=== PATIENT | male | born 1960 | race Caucasian/White ===

== ENCOUNTER 2019-09-25 08:38 | Observation (INO) | payer SELFPAY ==
[2019-09-25] VITALS (11 sets, daily range): BP systolic 137–199; BP diastolic 77–147
[~2019-09-25] VITALS: Ht 180.3 cm; Wt 107.1 kg
[~2019-09-25 08:38] MED LIST: ALBU2.5V8 NEB; AMLO10TA8 PO; ASPI-630 PO; ASPI325T8 PO; DOXY100C2 PO; FURO20TA3 PO; GUAI100L12 PO; LACT1CAP19 PO; LOSA-73 PO; LOSA25TA54 PO; MAG30ORA2 PO; METO100T7 PO; METO50TA6 PO; PRED-220 PO; PRED20TA PO; TERA5CAP3 PO
--- NOTE | 2019-09-25 08:55 | PHYS DOC ---
Past Medical History Past Medical History: COPD, Hypertension, RI, Stroke Past Surgical History: Other Additional Past Surgical Histo: BACK SURGERY, RT KNEE, CARDIAC STENTS, DENTAL Smoking Status: Current Every Day Smoker Alcohol Use: Occasionally Drug Use: None Adult General Chief Complaint Chief Complaint: SHORTNESS OF BREATH HPI HPI Patient is a 59 year old male who is brought to the ER by EMS secondary to complaint of increasing shortness of breath since last night with a history of COPD, atrial fibrillation, and cardiac stent x2. Patient reports waking this morning with some chest pain as well. He was given a DuoNeb breathing treatment in route and placed on oxygen which helped his chest pain and shortness of breath. Patient reports no recent fever or chills, cough or exposure to sick contacts. Patient reports he does not wear home oxygen brittany lly. His chest pain is currently mild Review of Systems Review of Systems All other systems were reviewed and found to be within normal limits, except as documented in this note. Current Medications Current Medications Current Medications Medications (Trade) Dose Ordered Sig/Adrienne Start Time Stop Time Status Last Admin Dose Admin Hydralazine HCl (Apresoline Inj) 10 mg 1X ONCE 09/25/19 09:30 09/25/19 09:31 DC Sodium Chloride 500 ml @ 500 mls/hr 1X ONCE 09/25/19 09:00 09/25/19 09:59 Allergies Allergies Allergies Coded Allergies Type Severity Reaction Last Updated Verified Beta-Blockers (Beta-Adrenergic Bloc Allergy Severe anaphylaxis 07/10/17 Yes lisinopril Allergy Severe anaphylaxis shock 07/10/17 Yes cyclobenzaprine Allergy Intermediate stomach problems 07/10/17 Yes Physical Exam Physical Exam Constitutional: Well developed, well nourished, very mild respiratory distress, appears sick HENT: Normocephalic, atraumatic, bilateral external ears normal, oropharynx moist, no oral exudates, nose normal. [] Eyes: PERRLA, EOMI, conjunctiva normal, no discharge. [] Neck: Normal range of motion, no tenderness, supple, no stridor. [] Cardiovascular: Tachycardic, no murmur [] Lungs & Thorax: Bilateral breath sounds clear to auscultation [] Abdomen: Bowel sounds normal, soft, no tenderness, no masses, no pulsatile chio s. [] Skin: Warm, dry, no erythema, no rash. [] Back: No tenderness, no CVA tenderness. [] Extremities: No tenderness, no cyanosis, no clubbing, ROM intact, no edema. [] Neurologic: Alert and oriented X 3, normal motor function, normal sensory function, no focal deficits noted. [] Psychologic: Affect normal, judgement normal, mood normal. [] Current Patient Data Vital Signs Vital Signs Date Time Temp Pulse Resp B/P (MAP) Pulse Ox O2 Delivery O2 Flow Rate FiO2 09/25/19 09:16 89 Ventilator 09/25/19 08:38 97.3 56 28 267/137 (180) 97.3 Lab Values Laboratory Tests Test 09/25/19 08:43 09/25/19 08:50 09/25/19 09:05 White Blood Count 8.8 x10^3/uL (4.0-11.0) Red Blood Count 4.94 x10^6/uL (4.30-5.70) Hemoglobin 15.1 g/dL (13.0-17.5) Hematocrit 44.8 % (39.0-53.0) Mean Corpuscular Volume 91 fL (79-100) Mean Corpuscular Hemoglobin 31 pg (25-35) Mean Corpuscular Hemoglobin Concent 34 g/dL (31-37) Red Cell Distribution Width 14.2 % (11.5-14.5) Platelet Count 191 x10^3/uL (140-400) Neutrophils (%) (Auto) 73 % (31-73) Lymphocytes (%) (Auto) 16 % (24-48) L Monocytes (%) (Auto) 6 % (0-9) Eosinophils (%) (Auto) 4 % (0-3) H Basophils (%) (Auto) 1 % (0-3) Neutrophils # (Auto) 6.4 x10^3/uL (1.8-7.7) Lymphocytes # (Auto) 1.4 x10^3/uL (1.0-4.8) Monocytes # (Auto) 0.5 x10^3/uL (0.0-1.1) Eosinophils # (Auto) 0.4 x10^3/uL (0.0-0.7) Basophils # (Auto) 0.1 x10^3/uL (0.0-0.2) Prothrombin Time 11.9 SEC (11.7-14.0) Prothrombin Time INR 0.9 (0.8-1.1) Activated Partial Thromboplast Time 29 SEC (24-38) Sodium Level 142 mmol/L (136-145) Potassium Level 3.7 mmol/L (3.5-5.1) Chloride Level 104 mmol/L (98-107) Carbon Dioxide Level 32 mmol/L (21-32) Anion Gap 6 (6-14) Blood Urea Nitrogen 12 mg/dL (8-26) Creatinine 0.8 mg/dL (0.7-1.3) Estimated GFR (Cockcroft-Gault) 99.6 Glucose Level 170 mg/dL (70-99) H Lactic Acid Level 1.3 mmol/L (0.4-2.0) Calcium Level 8.9 mg/dL (8.5-10.1) Creatine Kinase 64 U/L (39-308) Creatine Kinase MB (Mass) 1.4 ng/mL (0.0-3.6) Creatine Kinase MB Relative Index % (0-4) Troponin I Quantitative < 0.017 ng/mL (0.000-0.055) EK-Ugv-[id number]-Type Natriuretic Peptide 1813 pg/mL (0-124) H O2 Saturation 96 % (92-99) Arterial Blood pH 7.31 (7.35-7.45) L Arterial Blood pCO2 at Patient Temp 61 mmHg (35-46) *H Arterial Blood pO2 at Patient Temp 85 mmHg (75-108) Arterial Blood HCO3 30 mmol/L (21-28) H Arterial Blood Base Excess 2 mmol/L (-3-3) FiO2 60 Influenza Type A Antigen Negative (NEGATIVE) Influenza Type B Antigen Negative (NEGATIVE) Laboratory Tests 09/25/19 08:43 Laboratory Tests 09/25/19 08:43 EKG EKG Sinus rhythm with a ventricular rate of 87, no STEMI. [] Radiology/Procedures Radiology/Procedures AP chest x-ray HISTORY: Chest pain. COMPARISON: CT chest September 05, 2019. FINDINGS: Borderline cardiomegaly stable. Nasal silhouette normal. Mild medial basilar right lower lobe opacity similar to prior x-rays from September 05, [address] chest imaging. Left lung is clear. No pneumothorax. No pleural effusions. Bones are unremarkable. IMPRESSION: Medial basilar right lower lobe atelectasis versus early pulmonary edema or pneumonia. This is similar to x-rays and CT chest imaging from September 05, 2019. Follow-up will be of benefit to document that this resolves.[] Course & Med Decision Making Course & Med Decision Making Pertinent Labs and Imaging studies reviewed. (See chart for details) 0855: Patient is seen for shortness of breath. He was on CPAP upon arrival and transition to BiPAP in the ED. His oxygen saturation on BiPAP is 95% and he is breathing much easier at this time. His blood pressure was elevated so I have ordered 10 mg of hydralazine and a 500 cc normal saline bolus. Will give a sep tic work-up and the patient will need to be admitted. 0918: Chest x-ray shows some abnormalities consistent with either pulmonary edema, atelectasis, pneumonia. Patient was recently seen on September 04 and discharged on September 05 with similar symptoms. It is unclear to this provider whether or not the patient was discharged home on antibiotics. 0953: Patient's work-up is complete at this time and is mostly unremarkable. His chest x-ray has a few abnormalities as described above and his BNP is sli ghtly elevated but not nearly to the extent upon last admission. He is currently on BiPAP and he has remained stable and his heart rate is 79 and his oxygenation is 97%. Will admit to med telemetry for hypoxic respiratory failure with a history of CHF and current chest pain. Dragon Disclaimer Dragon Disclaimer This electronic medical record was generated, in whole or in part, using a voice recognition dictation system. Departure Departure Impression: Primary Impression: Acute respiratory failure with hypoxia Additional Impressions: Chest pain Congestive heart failure Disposition: ADMITTED INPATIENT Admitting Physician: BULMARO Condition: STABLE Referrals: GEOFF MARTI (PCP) Problem Qualifiers PATRICK GUTHRIE DO Sep 25, 2019 08:55
[2019-09-25 08:59] LABS: BASE EXCESS ABG 2 mmol/L (-3-3); HCO3 ABG 30 mmol/L (21-28); PO2 ABG 85 mmHg (75-108); SAT O2 ABG 96 % (92-99)
[2019-09-25] MEDS ORDERED: hydrALAZINE 20 MG/ML VIAL. IVP ONE ×2 (09:00→09:30)
[2019-09-25] MEDS ORDERED: IV NORMAL SALINE 500ML BAG 500 ML IV ONE (09:00)
[2019-09-25 09:06] LABS: BASO # 0.1 x10^3/uL (0.0-0.2); BASO % 1 % (0-3); EOS # 0.4 x10^3/uL (0.0-0.7); EOS % 4 % (0-3); HEMATOCRIT 44.8 % (39.0-53.0); HEMOGLOBIN 15.1 g/dL (13.0-17.5); LYMPH # 1.4 x10^3/uL (1.0-4.8); LYMPH % 16 % (24-48); MEAN CORPUSCULAR HEMOGLOBIN 31 pg (25-35); MEAN CORPUSCULAR HGB CONC 34 g/dL (31-37); MEAN CORPUSCULAR VOLUME 91 fL (79-100); MONO # 0.5 x10^3/uL (0.0-1.1); MONO % 6 % (0-9); NEUT # 6.4 x10^3/uL (1.8-7.7); NEUT % 73 % (31-73); PLATELET COUNT 191 x10^3/uL (140-400); RED BLOOD COUNT 4.94 x10^6/uL (4.30-5.70); RED CELL DISTRIBUTION WIDTH 14.2 % (11.5-14.5); WHITE BLOOD COUNT 8.8 x10^3/uL (4.0-11.0)
--- NOTE | 2019-09-25 09:06 | RAD ---
AP chest x-ray HISTORY: Chest pain. COMPARISON: CT chest September 05, 2019. FINDINGS: Borderline cardiomegaly stable. Nasal silhouette normal. Mild medial basilar right lower lobe opacity similar to prior x-rays from September 05, [address] chest imaging. Left lung is clear. No pneumothorax. No pleural effusions. Bones are unremarkable. IMPRESSION: Medial basilar right lower lobe atelectasis versus early pulmonary edema or pneumonia. This is similar to x-rays and CT chest imaging from September 05, 2019. Follow-up will be of benefit to document that this resolves. Electronically signed by: Claus Phillips MD (09/25/2019 9:03 AM) [id number]
[2019-09-25 09:10] LABS: FIO2 ABG 60; PCO2 ABG 61 mmHg (35-46)
[2019-09-25 09:16] LABS: CALCIUM 8.9 mg/dL (8.5-10.1); CREATININE 0.8 mg/dL (0.7-1.3); GFR 99.6; POTASSIUM 3.7 mmol/L (3.5-5.1)
[2019-09-25 09:20] LABS: PROTHROMBIN TIME PATIENT 11.9 SEC (11.7-14.0)
[2019-09-25 09:34] LABS: CREATINE KINASE 64 U/L (39-308)
[2019-09-25 09:36] LABS: INFLUENZA A PATIENT NEGATIVE (NEGATIVE); INFLUENZA B PATIENT NEGATIVE (NEGATIVE)
--- NOTE | 2019-09-25 10:07 | PDOC1 ---
History and Physical Date of Admission Date of Admission DATE: 09/25/19 TIME: 10:06 Identification/Chief Complaint Chief Complaint SEEN IN ER WITH ACUTE RESP FAILURE, PLACE ON BIPAP came ER by EMS secondary to complaint of increasing shortness of breath since 09/23 with a history of COPD, atrial fibrillation, and cardiac stent x2. Patient reports waking this morning with some chest pain as well. He was given a DuoNeb breathing treatment in route and placed on oxygen which helped his chest pain and shortness of breath. reports no recent fever or chills, cough or exposure to sick contacts. HE IS STILL SMOKING 4-5 CIGARETTES a day Past Medical History Past Medical History Past Medical History Past Medical History Past Medical History: COPD, Hypertension, AL, Stroke Past Surgical History: Other Additional Past Surgical Histo: BACK SURGERY, RT KNEE, CARDIAC STENTS, DENTAL Smoking Status: Current Every Day Smoker Alcohol Use: Occasionally Drug Use: None fhx htn Cardiovascular: CAD, HTN, AL, Hyperlipidemia Pulmonary: COPD CENTRAL NERVOUS SYSTEM: CVA GI: No pertinent hx Heme/Onc: No pertinent hx Psych: No pertinent hx Musculoskeletal: Osteoarthritis Rheumatologic: No pertinent hx Infectious disease: No pertinent hx Renal/: No pertinent hx Endocrine: No pertinent hx Past Surgical History Past Surgical History: Other Family History Family History fhx htn Cardiovascular: CAD, HTN, AL, Hyperlipidemia Pulmonary: COPD CENTRAL NERVOUS SYSTEM: CVA GI: No pertinent hx Heme/Onc: No pertinent hx Psych: No pertinent hx Musculoskeletal: Osteoarthritis Rheumatologic: No pertinent hx Infectious disease: No pertinent hx Renal/: No pertinent hx Endocrine: No pertinent hx Past Surgical History Past Surgical History: Other Family History Family History Past Medical History Cardiovascular: CAD, HTN, AL, Hyperlipidemia Pulmonary: COPD (chronic bronchitis) CENTRAL NERVOUS SYSTEM: CVA (with right side hemiparesis) GI: No pertinent hx Heme/Onc: No pertinent hx Psych: No pertinent hx Musculoskeletal: Osteoarthritis Rheumatologic: No pertinent hx Infectious disease: No pertinent hx ENT: No pertinent hx Renal/: No pertinent hx Endocrine: No pertinent hx Dermatology: No pertinent hx Past Surgical History Past Surgical History: Other (PCI/stent 2014; right hand surgery; right knee repair; vasectomy; lower back surgery) Family History Family History: Coronary Artery Disease (mother in her 50s), Diabetes (mother) Social History Smoke: No ALCOHOL: none Drugs: None Family History: Coronary Artery Disease, Diabetes Social History Smoke: 1 pack per day ALCOHOL: none Drugs: None Current Problem List Problem List Problems Medical Problems: (1) Acute respiratory failure with hypercapnia Status: Acute (2) CHF (congestive heart failure) Status: Acute Family History: Coronary Artery Disease, Diabetes, Hypertension Social History Smoke: <1 pack per day ALCOHOL: none Drugs: None Current Problem List Problem List Problems Medical Problems: (1) Acute respiratory failure with hypoxia Status: Acute (2) Chest pain Status: Acute (3) Congestive heart failure Status: Acute Current Medications Current Medications Current Medications Hydralazine HCl (Apresoline Inj) 10 mg 1X ONCE IVP ; Start 09/25/19 at 09:00; Stop 09/25/19 at 09:05; Status DC Sodium Chloride 500 ml @ 500 mls/hr 1X ONCE IV Last administered on 09/25/19at 09:59; Start 09/25/19 at 09:00; Stop 09/25/19 at 09:59; Status DC Hydralazine HCl (Apresoline Inj) 10 mg 1X ONCE IVP Last administered on 09/25/19at 10:00; Start 09/25/19 at 09:30; Stop 09/25/19 at 09:31; Status DC Active Scripts Active Furosemide 20 Mg Tablet 1 Tab PO DAILY 14 Days Doxycycline Hyclate 100 Mg Capsule 1 Cap PO BID 10 Days Prednisone 20 Mg Tablet 30 Mg PO DAILY 7 Days Culturelle (Lactobacillus Rhamnosus Gg) 1 Each Cap.sprink 1 Cap PO BID 30 Days Mag-Al Plus Xs Suspension (Mag Hydrox/Al Hydrox/Simeth) 30 Ml Oral.susp 30 Ml PO PRN DAILY PRN 10 Days Guaifenesin 100 Mg/5 Ml Liquid 200 Mg PO PRN Q4HRS PRN 10 Days Cozaar (Losartan Potassium) 50 Mg Tablet 100 Mg PO DAILY 30 Days Proair Hfa (Albuterol Sulfate) 8.5 Gm Hfa.aer.ad 2.5 Mg NEB PRN Q4HRS PRN 14 Days Reported Terazosin Hcl 5 Mg Capsule 1 Cap PO QHS Metoprolol Tartrate 100 Mg Tablet 2 Tab PO BID Aspirin 325 Mg Tablet 1 Tab PO DAILY Amlodipine Besylate 10 Mg Tablet 10 Mg PO DAILY Allergies Allergies: Coded Allergies: Beta-Blockers (Beta-Adrenergic Bloc (Verified Allergy, Severe, anaphylaxis, 07/10/17) takes lopressor at home lisinopril (Verified Allergy, Severe, anaphylaxis shock, 07/10/17) cyclobenzaprine (Verified Allergy, Intermediate, stomach problems, 07/10/17) ROS Review of System Review of Systems Review of Systems 14 pt systems were reviewed and found to be within normal limits, except as documented General: YES: Fatigue PSYCHOLOGICAL ROS: No: Anxiety, Behavioral Disorder, Concentration difficultie, Decreased libido, Depression, Disorientation, Hallucinations, Hostility, Irritablity, Memory difficulties, Mood Swings, Obsessive thoughts, Physical abuse, Sexual abuse, Sleep disturbances, Suicidal ideation, Other Hematological and Lymphatic: No: Bleeding Problems, Blood Clots, Blood Transfusions, Brusing, Night Sweats, Pallor, Swollen Lymph Nodes, Other Cardiovascular: yes Chest Pain Gastrointestinal: No Nausea, No Vomiting, No Abdominal Pain, No Diarrhea, No Constipation, No Melena, No Hematochezia, No Other Genitourinary: No Dysuria, No Frequency, No Incontinence, No Hematuria, No Retention, No Discharge, No Urgency, No Pain, No Flank Pain, No Other, No , No , No , No , No , No , No Musculoskeletal: Yes Joint Stiffness; No Gait Disturbance, No Joint Pain, No Joint Swelling, No Muscle Pain, No Muscular Weakness, No Pain In:, No Swelling In:, No Other Neurological: No Behavorial Changes, No Bowel/Bladder ControlChng, No Confusion, No Dizziness, No Gait Disturbance, No Headaches, No Impaired Coord/balance, No Memory Loss, No Numbness/Tingling, No Seizures, No Speech Problems, No Tremors, No Visual Changes, No Weakness, No Other Physical Exam Physical Exam Physical Exam Physical Exam Constitutional: Well developed, well nourished, mild respiratory distress, appears acutely ill HENT: Normocephalic, atraumatic, bilateral external ears normal, oropharynx moist, no oral exudates, nose normal. [] Eyes: PERRLA, EOMI, conjunctiva normal, no discharge. [] Neck: Normal range of motion, no tenderness, supple, no stridor. [] Cardiovascular: Tachycardic, no murmur [] Lungs & Thorax: Bilateral breath sounds clear to auscultation, diminished [] Abdomen: Bowel sounds normal, soft, no tenderness, no masses, no pulsatile masses. [] Skin: Warm, dry, no erythema, no rash. [] Back: No tenderness, no CVA tenderness. [] Extremities: No tenderness, no cyanosis, no clubbing, ROM intact, no edema. [] Neurologic: Alert and oriented X 3, normal motor function, normal sensory function, no focal deficits noted. [] Psychologic: Affect normal, judgment normal, mood normal. [] General: Alert, Oriented X3, Cooperative, mild distress HEENT: PERRLA, EOMI Heart: no gallops Abdomen: Normal bowel sounds, Soft, Other (obese) Rectal Exam: not examined PELVIC: Examination not indicated Extremities: No cyanosis Neuro: Normal speech, Cranial nerves 3-12 NL Psych/Mental Status: Mental status NL, Mood NL Vitals Vitals Vital Signs Date Time Temp Pulse Resp B/P (MAP) Pulse Ox O2 Delivery O2 Flow Rate FiO2 09/25/19 10:00 78 188/102 09/25/19 09:16 89 Ventilator 09/25/19 08:38 97.3 28 97.3 Labs Labs Laboratory Tests Test 09/25/19 08:43 09/25/19 08:50 09/25/19 09:05 White Blood Count 8.8 x10^3/uL (4.0-11.0) Red Blood Count 4.94 x10^6/uL (4.30-5.70) Hemoglobin 15.1 g/dL (13.0-17.5) Hematocrit 44.8 % (39.0-53.0) Mean Corpuscular Volume 91 fL (79-100) Mean Corpuscular Hemoglobin 31 pg (25-35) Mean Corpuscular Hemoglobin Concent 34 g/dL (31-37) Red Cell Distribution Width 14.2 % (11.5-14.5) Platelet Count 191 x10^3/uL (140-400) Neutrophils (%) (Auto) 73 % (31-73) Lymphocytes (%) (Auto) 16 % (24-48) Monocytes (%) (Auto) 6 % (0-9) Eosinophils (%) (Auto) 4 % (0-3) Basophils (%) (Auto) 1 % (0-3) Neutrophils # (Auto) 6.4 x10^3/uL (1.8-7.7) Lymphocytes # (Auto) 1.4 x10^3/uL (1.0-4.8) Monocytes # (Auto) 0.5 x10^3/uL (0.0-1.1) Eosinophils # (Auto) 0.4 x10^3/uL (0.0-0.7) Basophils # (Auto) 0.1 x10^3/uL (0.0-0.2) Prothrombin Time 11.9 SEC (11.7-14.0) Prothromb Time International Ratio 0.9 (0.8-1.1) Activated Partial Thromboplast Time 29 SEC (24-38) Sodium Level 142 mmol/L (136-145) Potassium Level 3.7 mmol/L (3.5-5.1) Chloride Level 104 mmol/L (98-107) Carbon Dioxide Level 32 mmol/L (21-32) Anion Gap 6 (6-14) Blood Urea Nitrogen 12 mg/dL (8-26) Creatinine 0.8 mg/dL (0.7-1.3) Estimated GFR (Cockcroft-Gault) 99.6 Glucose Level 170 mg/dL (70-99) Lactic Acid Level 1.3 mmol/L (0.4-2.0) Calcium Level 8.9 mg/dL (8.5-10.1) Creatine Kinase 64 U/L (39-308) Creatine Kinase MB (Mass) 1.4 ng/mL (0.0-3.6) Creatine Kinase MB Relative Index % (0-4) Troponin I Quantitative < 0.017 ng/mL (0.000-0.055) QS-Hyn-G-Type Natriuretic Peptide 1813 pg/mL (0-124) O2 Saturation 96 % (92-99) Arterial Blood pH 7.31 (7.35-7.45) Arterial Blood pCO2 at Patient Temp 61 mmHg (35-46) Arterial Blood pO2 at Patient Temp 85 mmHg (75-108) Arterial Blood HCO3 30 mmol/L (21-28) Arterial Blood Base Excess 2 mmol/L (-3-3) FiO2 60 Influenza Type A Antigen Negative (NEGATIVE) Influenza Type B Antigen Negative (NEGATIVE) Laboratory Tests Test 09/25/19 08:43 09/25/19 08:50 09/25/19 09:05 White Blood Count 8.8 x10^3/uL (4.0-11.0) Red Blood Count 4.94 x10^6/uL (4.30-5.70) Hemoglobin 15.1 g/dL (13.0-17.5) Hematocrit 44.8 % (39.0-53.0) Mean Corpuscular Volume 91 fL (79-100) Mean Corpuscular Hemoglobin 31 pg (25-35) Mean Corpuscular Hemoglobin Concent 34 g/dL (31-37) Red Cell Distribution Width 14.2 % (11.5-14.5) Platelet Count 191 x10^3/uL (140-400) Neutrophils (%) (Auto) 73 % (31-73) Lymphocytes (%) (Auto) 16 % (24-48) Monocytes (%) (Auto) 6 % (0-9) Eosinophils (%) (Auto) 4 % (0-3) Basophils (%) (Auto) 1 % (0-3) Neutrophils # (Auto) 6.4 x10^3/uL (1.8-7.7) Lymphocytes # (Auto) 1.4 x10^3/uL (1.0-4.8) Monocytes # (Auto) 0.5 x10^3/uL (0.0-1.1) Eosinophils # (Auto) 0.4 x10^3/uL (0.0-0.7) Basophils # (Auto) 0.1 x10^3/uL (0.0-0.2) Prothrombin Time 11.9 SEC (11.7-14.0) Prothromb Time International Ratio 0.9 (0.8-1.1) Activated Partial Thromboplast Time 29 SEC (24-38) Sodium Level 142 mmol/L (136-145) Potassium Level 3.7 mmol/L (3.5-5.1) Chloride Level 104 mmol/L (98-107) Carbon Dioxide Level 32 mmol/L (21-32) Anion Gap 6 (6-14) Blood Urea Nitrogen 12 mg/dL (8-26) Creatinine 0.8 mg/dL (0.7-1.3) Estimated GFR (Cockcroft-Gault) 99.6 Glucose Level 170 mg/dL (70-99) Lactic Acid Level 1.3 mmol/L (0.4-2.0) Calcium Level 8.9 mg/dL (8.5-10.1) Creatine Kinase 64 U/L (39-308) Creatine Kinase MB (Mass) 1.4 ng/mL (0.0-3.6) Creatine Kinase MB Relative Index % (0-4) Troponin I Quantitative < 0.017 ng/mL (0.000-0.055) AG-Rmg-Q-Type Natriuretic Peptide 1813 pg/mL (0-124) O2 Saturation 96 % (92-99) Arterial Blood pH 7.31 (7.35-7.45) Arterial Blood pCO2 at Patient Temp 61 mmHg (35-46) Arterial Blood pO2 at Patient Temp 85 mmHg (75-108) Arterial Blood HCO3 30 mmol/L (21-28) Arterial Blood Base Excess 2 mmol/L (-3-3) FiO2 60 Influenza Type A Antigen Negative (NEGATIVE) Influenza Type B Antigen Negative (NEGATIVE) Images Images Images Images LEFT VENTRICLE The left ventricle is normal size. There is mild to moderate concentric left ventricular hypertrophy. The left ventricular systolic function is normal and the ejection fraction is within normal range. EF 55% There is grossly normal LV segmental wall motion. Tissue Doppler imaging reveals mild left ventricular diastolic dysfunction. RIGHT VENTRICLE The right ventricle is normal size. The right ventricular systolic function is normal. ATRIA The left atrium is borderline dilated. The right atrium size is normal. The interatrial septum is intact with no evidence for an atrial septal defect or patent foramen ovale as noted on 2-D or Doppler imaging. AORTIC VALVE Not well visualized. Doppler and Color Flow revealed no significant aortic regurgitation. There is no significant aortic valvular stenosis. There is no ao rtic valvular vegetation. MITRAL VALVE The mitral valve is thickened but opens well. There is no evidence of mitral valve prolapse. There is no mitral valve stenosis. Doppler and Color-flow revealed mild mitral regurgitation. TRICUSPID VALVE Doppler and Color Flow revealed no tricuspid valve regurgitation noted. There is no tricuspid valve prolapse or vegetation. There is no tricuspid valve stenosis. PULMONIC VALVE Doppler and Color Flow revealed no pulmonic valvular regurgitation. There is no pulmonic valvular stenosis. GREAT VESSELS The aortic root is normal in size. The IVC is enlarged in size and collapses <50% with inspiration. PERICARDIAL EFFUSION There is no pleural effusion. There is no evidence of significant pericardial effusion. Critical Notification Critical Value: No <Conclusion> The left ventricular systolic function is normal and the ejection fraction is within normal range. EF 55% There is grossly normal LV segmental wall motion. Technically difficult study. Signed by : Didier Carter, Electronically Approved : 07/11/2017 13:01:58 DICTATED and SIGNED BY: DIDIER CARTER MD DATE: 07/11/17 1301 History: Dyspnea. Respiratory distress Technique: CT of the chest was performed with contrast. PE protocol. Maximum intensity projection coronal and sagittal reconstructions were performed. Exposure: One or more of the following individualized dose reduction techniques were utilized for this examination: 1. Automated exposure control 2. Adjustment of the mA and/or kV according to patient size 3. Use of iterative reconstruction technique. Comparison: None Findings: Chest: No pulmonary embolism. Multiple borderline enlarged mediastinal lymph nodes largest right paratracheal lymph node measures 1.5 x 1.0 cm. Enlarged right hilar lymph nodes. Calcified subcarinal and right hilar lymph nodes, likely prior granulous disease. Mild paraseptal emphysema. Mild basilar septal thickening with groundglass opacities. Bronchial wall thickening. Right middle lobe 4 mm pulmonary nodule (series 3 image 87). 4 mm left upper lobe pulmonary nodule (image 48). 3 mm left anterior upper lobe pulmonary nodule (image #86). Upper abdomen: Right hepatic cyst measures 1.5 cm. Splenic granulomas. Slight Bones: No pathologic osseous lesions. Impression: 1. No pulmonary embolism. 2. Mild bilateral lower lobe septal thickening and groundglass opacities, may represent early pulmonary edema. 3. Bronchial wall thickening. 4. Hilar mediastinal lymphadenopathy, likely reactive. Recommend follow-up. 5. Small pulmonary nodules. Recommend one-year follow-up if high risk. 6. Mild paraseptal emphysema. Electronically signed by: Baljinder Harkins DO (09/05/2019 3:20 AM) [id number] DICTATED and SIGNED BY: BALJINDER HARKINS DO PATIENT: ACACIA MOORE ACCOUNT: [id number] : 1960 LOCATION: ER AGE: 59 SEX: M EXAM STATUS: REG ER ORD. PHYSICIAN: ALEK ECHOLS Jr., DO REASON: possible PE, DYSPENIA, RESPIRATORY DISTRESS, OMNI 350 100ML IV PROCEDURE: CT ANGIOGRAPHY CHEST CT ANGIOGRAPHY CHEST History: Dyspnea. Respiratory distress Technique: CT of the chest was performed with contrast. PE protocol. Maximum intensity projection coronal and sagittal reconstructions were performed. Exposure: One or more of the following individualized dose reduction techniques were utilized for this examination: 1. Automated exposure control 2. Adjustment of the mA and/or kV according to patient size 3. Use of iterative reconstruction technique. Comparison: None Findings: Chest: No pulmonary embolism. Multiple borderline enlarged mediastinal lymph nodes largest right paratracheal lymph node measures 1.5 x 1.0 cm. Enlarged right hilar lymph nodes. Calcified subcarinal and right hilar lymph nodes, likely prior granulous disease. Mild paraseptal emphysema. Mild basilar septal thickening with groundglass opacities. Bronchial wall thickening. Right middle lobe 4 mm pulmonary nodule (series 3 image 87). 4 mm left upper lobe pulmonary nodule (image 48). 3 mm left anterior upper lobe pulmonary nodule (image #86). Upper abdomen: Right hepatic cyst measures 1.5 cm. Splenic granulomas. Slight Bones: No pathologic osseous lesions. Impression: 1. No pulmonary embolism. 2. Mild bilateral lower lobe septal thickening and groundglass opacities, may represent early pulmonary edema. 3. Bronchial wall thickening. 4. Hilar mediastinal lymphadenopathy, likely reactive. Recommend follow-up. 5. Small pulmonary nodules. Recommend one-year follow-up if high risk. 6. Mild paraseptal emphysema. Electronically signed by: Baljinder Harkins DO (09/05/2019 3:20 AM) [id number] DICTATED and SIGNED BY: BALJINDER HARKINS DO DATE: 09/05/19 0320 AP chest x-ray HISTORY: Chest pain. COMPARISON: CT chest September 05, 2019. FINDINGS: Borderline cardiomegaly stable. Nasal silhouette normal. Mild medial basilar right lower lobe opacity similar to prior x-rays from September 05, [address] chest imaging. Left lung is clear. No pneumothorax. No pleural effusions. Bones are unremarkable. IMPRESSION: Medial basilar right lower lobe atelectasis versus early pulmonary edema or pneumonia. This is similar to x-rays and CT chest imaging from September 05, 2019. Follow-up will be of benefit to document that this resolves. Electronically signed by: Rafael Bowens MD (09/25/2019 9:03 AM) [id number] DICTATED and SIGNED BY: RAFAEL BOWENS MD DATE: 09/25/19 0903 VTE Prophylaxis Ordered VTE Prophylaxis Devices: No VTE Pharmacological Prophylaxi: Yes Assessment/Plan Assessment/Plan DISCHARGE DX Assessment/Plan Impression: 1. No pulmonary embolism. cta chest 2. Mild bilateral lower lobe septal thickening and ground-glass opacities,may represent early pulmonary edema. 3. Bronchial wall thickening. 4. Hilar mediastinal lymphadenopathy, likely reactive. 5. Small pulmonary nodules. Recommend one-year follow-up // high risk. 6. paraseptal emphysema. 7. acute exac of COPD 8. ACUTE HYPOXIC/ hypercapnic RESP FAILURE 9. morbid obesity 10. Acute respiratory failure with hypercapnia 11. tobacco abuse disorder 12. acute exac CHF (congestive heart failure) 13. chest discomfort, pain with cough 14. HX severe hypertensive emergency, remains uncontrolled 15. elevated d- dimer PLAN ADMIT ICU bed isolation PULM CONSULT dvt prophylaxis iv doxycycline 100mg bid serial troponin i increase LOSARTEN TO 200MG po daily smoking cessation education provided bipap support prn diuresis COVI-19 AG SCREENING serial troponin i 75 min pt exam, chart review, > 50% of time spent with exam, chart review, pt care coordination RUSSEL ALVARADO MD Sep 25, 2019 10:07
[2019-09-25] MEDS ORDERED: cloNIDine HCL 0.1 MG TABLET PO PRN (10:45)
[2019-09-25] MEDS ORDERED: guaiFENesin ORAL 200 MG/10 ML LIQUID. PO PRN (10:45)
[2019-09-25] MEDS ORDERED: DOCUSATE SODIUM 100 MG CAPSULE. PO PRN (10:45)
[2019-09-25] MEDS ORDERED: 0.9 % SODIUM CHLORIDE 10 ML DISP.SYRIN. IV PRN (10:45)
[2019-09-25] MEDS ORDERED: ACETAMINOPHEN 325 MG TABLET. PO PRN (10:45)
[2019-09-25] MEDS ORDERED: ONDANSETRON PF 4 MG/2 ML VIAL. IV PRN (10:45)
[2019-09-25] MEDS ORDERED: MAG HYDROX/ALUMINUM HYD/SIMETH 30 ML ORAL.SUSP PO PRN (10:45)
[2019-09-25] MEDS: ENOXAPARIN 40 MG/0.4 ML SYRINGE. SQ SCH (11:00)
--- NOTE | 2019-09-25 11:05 | RAD ---
EXAM: CT Chest without IV contrast INDICATION: Shortness of air TECHNIQUE: Multi-detector row CT images were acquired from the thoracic inlet through the upper abdomen without the use of IV contrast. Sagittal and coronal images were acquired from the transaxial data. All CT scans performed at this facility utilize dose optimization techniques as appropriate to the exam, including the following: Automated exposure control and adjustment of the mA and/or KV according to patient size (this includes techniques or standardized protocols for targeted exams where dose is indication/reason for exam). COMPARISON: 09/25/2019 chest x-ray FINDINGS: There is some respiratory motion artifact. The absence of IV contrast limits evaluation of soft tissue pathology. CARDIOVASCULAR: Multivessel coronary calcifications. Normal heart size. Mild ascending thoracic aortic ectasia up to 4.5 cm transverse diameter with no abnormal density suspicious for intramural hematoma. MEDIASTINUM & NITESH: No mediastinal adenopathy with multiple prominent lymph nodes present, including right lower paratracheal lymph nodes that measure 1.3 cm in short axis diameter. No definite hilar adenopathy. There are calcified right hilar lymph nodes however noted. LUNGS: Mild paraseptal pattern emphysema and bibasilar ground glass opacities favored to reflect changes. No focal consolidation. Left upper lobe 5 mm pulmonary nodule (image 17 of axial series 2). PLEURAL SPACE: No pleural effusions or pneumothorax. OSSEOUS & SOFT TISSUE: Unremarkable ABDOMEN: Included upper abdomen shows an oval 1.7 cm hypodense lesion in hepatic segment 4 that is incompletely characterized without IV contrast. Statistically, this likely represents a cyst. IMPRESSION: 1. Evidence of prior granulomatous disease and early emphysematous change with no focal parenchymal lung consolidation suspicious for pneumonia. There are groundglass opacities in the bilateral posterior costophrenic angles with trace effusions that are favored to reflect atelectasis. Correlate clinically for any associated infectious inflammatory conditions. 2. Left upper lobe 5 mm pulmonary nodule. Per Fleischner 2017 criteria for incidental pulmonary nodules, no routine follow-up is required in patients considered at low risk for lung cancer. In high-risk patients, optional CT at 12 months may be considered. Electronically signed by: Bret Browne MD (09/25/2019 11:02 AM) [id number]
[2019-09-25] MEDS ORDERED: ALBUTEROL SULFATE 2.5 MG/3 ML NEBU. NEB PRN (11:15)
[2019-09-25] MEDS ORDERED: PIPERACILLIN/TAZOBACTAM 3.375 GM in IV NORMAL SALINE 50ML 50 ML IV ONE (11:30)
[2019-09-25] MEDS: IPRATRPIUM/ALBUTEROL 0.5/2.5MG 3 ML NEBU. NEB SCH ×4 (11:44→22:45)
[2019-09-25] MEDS ORDERED: LOSARTAN POTASSIUM 50 MG TABLET. PO SCH (12:00)
[2019-09-25] MEDS: FUROSEMIDE 40 MG TABLET. PO SCH (12:33)
[2019-09-25] MEDS ORDERED: LOSA100T14 PO (12:44)
--- NOTE | 2019-09-25 13:30 | NUR ---
Patient arrived to room 104 via gurney from ER. Patient on 2L NC, vitals stable, patient alert and oriented, call light within reach, will continue to monitor.
--- NOTE | 2019-09-25 13:36 | CONS ---
DATE OF CONSULTATION: 09/25/2019 CONSULTING PHYSICIAN: Dr. Cooper. REASON FOR CONSULTATION: Shortness of breath. HISTORY OF PRESENT ILLNESS: The patient is a 59-year-old man who presents to the hospital in the setting of dyspnea. He was actually admitted to the hospital in September of this year, approximately 3 weeks ago for similar symptoms. When he arrived to the ER, he was noted to be in hypercapnic respiratory failure. In speaking with the patient, he reports that over the last few days after discharge from the hospital at his last visit, he has had progressive dyspnea and this is what he thinks led to his hypertension. He has been diagnosed with COPD exacerbation due to multifactorial issues including smoking. After admission, he feels much better. He denies any current angina. At home, he has not had any anginal symptoms. He has plan for an outpatient stress test due to minimal troponin elevation at his last visit. PAST MEDICAL HISTORY: 1. Coronary artery disease status post PCI remotely. 2. Hypertension. 3. Dyslipidemia. 4. BPH. 5. Diastolic heart failure. SOCIAL HISTORY: The patient is a smoker. He works in shipping and receiving specialist. Denies any illicit drug use. FAMILY HISTORY: Noncontributory. PAST SURGICAL HISTORY: Noncontributory. REVIEW OF SYSTEMS: Negative for 10 out of 14 systems reviewed, unless otherwise mentioned above in HPI. ALLERGIES: BETA BLOCKERS AND LISINOPRIL. CURRENT HOME CARDIOVASCULAR MEDICATIONS: As follows: 1. Amlodipine 10 mg daily. 2. Losartan 100 mg daily. 3. Aspirin 325 mg daily. 4. Lasix 20 mg daily. 5. Metoprolol 100 mg p.o. b.i.d. 6. Terazosin 5 mg daily. REVIEW OF SYSTEMS: Negative unless otherwise mentioned above in HPI. PHYSICAL EXAMINATION: GENERAL: He is alert and oriented x 3. VITAL SIGNS: Afebrile, 83, 20, 199/114, 99% on nasal cannula 2 liters. General physical examination is deferred due to COVID rule out. DIAGNOSTIC STUDIES: Flu A and B is negative. Creatinine is within normal limits. Troponin is negative. BNP is mildly elevated at 1813. ABG demonstrates hypercapnic respiratory failure with a pCO2 of 61. Hemoglobin and platelets are within normal limits. Chest CT does not reveal any acute pneumonia. Prior echocardiogram in 2018 revealed ejection fraction of 55%. Prior nuclear stress testing in 2018 revealed no evidence of ischemia with a fixed inferior defect. EKG is currently unavailable for review, but telemetry reveals sinus rhythm with PACs. IMPRESSION: 1. Acute hypercapnic respiratory failure: Likely chronic obstructive pulmonary disease exacerbation in the setting of tobacco abuse. 2. Acute diastolic heart failure secondary to malignant hypertension. RECOMMENDATIONS: 1. Continue home medications and monitor his blood pressure and may titrate as necessary. 2. Continue treatment of COPD per Dr. Fontaine and the Pulmonary service. At this present time, no further inpatient cardiovascular testing is necessary. Once his home blood pressure medications were restarted and his blood pressure is controlled at less than 160/90, he may be safely discharged from a cardiac perspective and follow up with us on an outpatient basis. He is scheduled to follow up with Dr. Khalil after an outpatient stress test. Thank you for this consultation. DIDIER VELASQUEZ MD DR: ERICH/adrián JOB#: [id number] / [id number]
--- NOTE | 2019-09-25 15:23 | EKG ---
[facility] [address] [place] [address] Test Date: 2019-09-25 Test Time: 08:46:07 Pat Name: ACACIA MOORE Department: Room: 104 1 Gender: M Commercial Producer: : [id number] Requested By: PATRICK GUTHRIE Order Number: [id number] Reading MD: Nathanael Carter MD Measurements Intervals [place] Rate: 87 P: 141 MS: 190 QRS: 63 QRSD: 138 T: -88 QT: 372 QTc: 448 Interpretive Statements SR IVCD NON-SPECIFIC ST/T CHANGES Electronically Signed On 10-04-2019 11:25:45 CDT by Nathanael Carter MD
[2019-09-25] MEDS ORDERED: C.DIFF MED SCREEN BY RX. MC ONE (16:00)
[2019-09-25] MEDS: PIPERACILLIN/TAZOBACTAM 3.375 GM in IV NORMAL SALINE 50ML 50 ML IV SCH (18:38)
[2019-09-25] MEDS ORDERED: METOPROLOL TART IMMED RELEASE 50 MG TABLET. PO SCH ×2 (21:00)
[2019-09-25] MEDS ORDERED: TERAZOSIN 5 MG CAPSULE. PO SCH (21:00)
[2019-09-25] MEDS: LACTOBACILLUS RHAMNOSUS GG 1 CAPSULE. PO SCH (21:16)
[2019-09-26] VITALS (16 sets, daily range): BP systolic 125–174; BP diastolic 64–98
[2019-09-26] MEDS: PIPERACILLIN/TAZOBACTAM 3.375 GM in IV NORMAL SALINE 50ML 50 ML IV SCH ×3 (00:18→12:53)
[2019-09-26 05:18] LABS: BASO # 0.1 x10^3/uL (0.0-0.2); BASO % 1 % (0-3); EOS # 0.2 x10^3/uL (0.0-0.7); EOS % 3 % (0-3); HEMATOCRIT 38.3 % (39.0-53.0); HEMOGLOBIN 12.6 g/dL (13.0-17.5); LYMPH # 1.2 x10^3/uL (1.0-4.8); LYMPH % 19 % (24-48); MEAN CORPUSCULAR HEMOGLOBIN 30 pg (25-35); MEAN CORPUSCULAR HGB CONC 33 g/dL (31-37); MEAN CORPUSCULAR VOLUME 92 fL (79-100); MONO # 0.4 x10^3/uL (0.0-1.1); MONO % 6 % (0-9); NEUT # 4.5 x10^3/uL (1.8-7.7); NEUT % 70 % (31-73); PLATELET COUNT 149 x10^3/uL (140-400); RED BLOOD COUNT 4.18 x10^6/uL (4.30-5.70); RED CELL DISTRIBUTION WIDTH 14.3 % (11.5-14.5); WHITE BLOOD COUNT 6.4 x10^3/uL (4.0-11.0)
[2019-09-26 05:21] LABS: CALCIUM 8.6 mg/dL (8.5-10.1); POTASSIUM 3.2 mmol/L (3.5-5.1)
[2019-09-26 05:33] LABS: ALBUMIN 2.7 g/dL (3.4-5.0); ALBUMIN/GLOBULIN RATIO 0.8 (1.0-1.7); TOTAL BILIRUBIN 0.6 mg/dL (0.2-1.0)
[2019-09-26] MEDS: IPRATRPIUM/ALBUTEROL 0.5/2.5MG 3 ML NEBU. NEB SCH ×3 (06:45→15:39)
[2019-09-26] MEDS ORDERED: POTASSIUM CHLORIDE 20 MEQ TABLET.ER. PO ONE (08:30)
[2019-09-26] MEDS: LACTOBACILLUS RHAMNOSUS GG 1 CAPSULE. PO SCH (08:30)
[2019-09-26] MEDS: FUROSEMIDE 40 MG TABLET. PO SCH (08:31)
[2019-09-26] MEDS: ENOXAPARIN 40 MG/0.4 ML SYRINGE. SQ SCH (08:34)
--- NOTE | 2019-09-26 08:35 | PDOC ---
PROGRESS NOTES Chief Complaint Chief Complaint A/P: Acute hypoxic and hypercapnic respiratory failure - on BIPAP initially, likely multifactorial 2/2 COPD and mild dCHF exacerbation Acute exacerbation of COPD - still smoking, likely etiology. Nebs, BIPAP, pulm consultation. Mild bilateral lower lobe septal thickening and ground-glass opacities,may represent early pulmonary edema. Small pulmonary nodules. Recommend one-year follow-up - seen by Dr. Fontaine and recommended this just 3 weeks prior COPD - Paraseptal emphysema. Morbid obesity Tobacco abuse disorder Acute diastolic congestive heart failure exacerbation - diurese. Cardiology consulted. Chest pain - costochondritis. Neg trop and EKG, no [place]. Severe hypertensive emergency, remains uncontrolled Elevated d- dimer History of Present Illness History of Present Illness Mr Aaron is a 59yo M w/ PMHx CAD s/p PCI, HTN, HLD, BPH, chronic dCHF (EF 55%), smoker who p/w shortness of breath initially. He was found on ABG to have pH 7.31/61/85 and was initially placed on BIPAP, admitted to [facility]. Flu A and B is negative. Troponin is negative. BNP is mildly elevated at 1813. CT chest negative for pneumonia, emphysematous changes noted and ground-glass opacities posteriorly consistent with atelectasis. He has no sick contacts or recent travel. Based on CT findings he was placed in ICU due to testing being sent for SARS-CoV-2 (COVID-19) for quarantine isolation. He was admitted the first week of September for the same issues, discharged home with meds and follow up. He still continues to smoke. Cutting his dose to 50mg of metoprolol per cardiology recommendations Vitals Vitals Vital Signs Date Time Temp Pulse Resp B/P (MAP) Pulse Ox O2 Delivery O2 Flow Rate FiO2 09/26/19 07:45 95 Nasal Cannula 2.0 09/26/19 07:00 50 18 158/88 (111) 09/26/19 04:00 97.8 97.8 Physical Exam General: Alert, Oriented X3, Cooperative, mild distress Lungs: Crackles Abdomen: Normal bowel sounds, Soft, Other (obese) Extremities: No cyanosis Labs LABS Laboratory Tests Test 09/25/19 08:43 09/25/19 08:50 09/25/19 09:05 3/22/20 04:00 White Blood Count 8.8 x10^3/uL (4.0-11.0) 6.4 x10^3/uL (4.0-11.0) Red Blood Count 4.94 x10^6/uL (4.30-5.70) 4.18 x10^6/uL (4.30-5.70) Hemoglobin 15.1 g/dL (13.0-17.5) 12.6 g/dL (13.0-17.5) Hematocrit 44.8 % (39.0-53.0) 38.3 % (39.0-53.0) Mean Corpuscular Volume 91 fL (79-100) 92 fL (79-100) Mean Corpuscular Hemoglobin 31 pg (25-35) 30 pg (25-35) Mean Corpuscular Hemoglobin Concent 34 g/dL (31-37) 33 g/dL (31-37) Red Cell Distribution Width 14.2 % (11.5-14.5) 14.3 % (11.5-14.5) Platelet Count 191 x10^3/uL (140-400) 149 x10^3/uL (140-400) Neutrophils (%) (Auto) 73 % (31-73) 70 % (31-73) Lymphocytes (%) (Auto) 16 % (24-48) 19 % (24-48) Monocytes (%) (Auto) 6 % (0-9) 6 % (0-9) Eosinophils (%) (Auto) 4 % (0-3) 3 % (0-3) Basophils (%) (Auto) 1 % (0-3) 1 % (0-3) Neutrophils # (Auto) 6.4 x10^3/uL (1.8-7.7) 4.5 x10^3/uL (1.8-7.7) Lymphocytes # (Auto) 1.4 x10^3/uL (1.0-4.8) 1.2 x10^3/uL (1.0-4.8) Monocytes # (Auto) 0.5 x10^3/uL (0.0-1.1) 0.4 x10^3/uL (0.0-1.1) Eosinophils # (Auto) 0.4 x10^3/uL (0.0-0.7) 0.2 x10^3/uL (0.0-0.7) Basophils # (Auto) 0.1 x10^3/uL (0.0-0.2) 0.1 x10^3/uL (0.0-0.2) Prothrombin Time 11.9 SEC (11.7-14.0) Prothromb Time International Ratio 0.9 (0.8-1.1) Activated Partial Thromboplast Time 29 SEC (24-38) Sodium Level 142 mmol/L (136-145) 143 mmol/L (136-145) Potassium Level 3.7 mmol/L (3.5-5.1) 3.2 mmol/L (3.5-5.1) Chloride Level 104 mmol/L (98-107) 105 mmol/L (98-107) Carbon Dioxide Level 32 mmol/L (21-32) 32 mmol/L (21-32) Anion Gap 6 (6-14) 6 (6-14) Blood Urea Nitrogen 12 mg/dL (8-26) 17 mg/dL (8-26) Creatinine 0.8 mg/dL (0.7-1.3) 1.0 mg/dL (0.7-1.3) Estimated GFR (Cockcroft-Gault) 99.6 77.0 Glucose Level 170 mg/dL (70-99) 112 mg/dL (70-99) Lactic Acid Level 1.3 mmol/L (0.4-2.0) Calcium Level 8.9 mg/dL (8.5-10.1) 8.6 mg/dL (8.5-10.1) Magnesium Level 2.4 mg/dL (1.8-2.4) Creatine Kinase 64 U/L (39-308) Creatine Kinase MB (Mass) 1.4 ng/mL (0.0-3.6) Creatine Kinase MB Relative Index % (0-4) Troponin I Quantitative < 0.017 ng/mL (0.000-0.055) RJ-Knl-B-Type Natriuretic Peptide 1813 pg/mL (0-124) O2 Saturation 96 % (92-99) Arterial Blood pH 7.31 (7.35-7.45) Arterial Blood pCO2 at Patient Temp 61 mmHg (35-46) Arterial Blood pO2 at Patient Temp 85 mmHg (75-108) Arterial Blood HCO3 30 mmol/L (21-28) Arterial Blood Base Excess 2 mmol/L (-3-3) FiO2 60 Influenza Type A Antigen Negative (NEGATIVE) Influenza Type B Antigen Negative (NEGATIVE) BUN/Creatinine Ratio 17 (6-20) Total Bilirubin 0.6 mg/dL (0.2-1.0) Aspartate Amino Transf (AST/SGOT) 16 U/L (15-37) Alanine Aminotransferase (ALT/SGPT) 21 U/L (16-63) Alkaline Phosphatase 77 U/L (46-116) Total Protein 6.0 g/dL (6.4-8.2) Albumin 2.7 g/dL (3.4-5.0) Albumin/Globulin Ratio 0.8 (1.0-1.7) Assessment and Plan Assessmemt and Plan Problems Medical Problems: (1) Acute respiratory failure with hypoxia Status: Acute (2) Chest pain Status: Acute (3) Congestive heart failure Status: Acute Comment Review of Relevant I have reviewed the following items elieser (where applicable) has been applied. Labs Laboratory Tests Test 09/25/19 08:43 09/25/19 08:50 09/25/19 09:05 09/26/19 04:00 White Blood Count 8.8 x10^3/uL (4.0-11.0) 6.4 x10^3/uL (4.0-11.0) Red Blood Count 4.94 x10^6/uL (4.30-5.70) 4.18 x10^6/uL (4.30-5.70) Hemoglobin 15.1 g/dL (13.0-17.5) 12.6 g/dL (13.0-17.5) Hematocrit 44.8 % (39.0-53.0) 38.3 % (39.0-53.0) Mean Corpuscular Volume 91 fL (79-100) 92 fL (79-100) Mean Corpuscular Hemoglobin 31 pg (25-35) 30 pg (25-35) Mean Corpuscular Hemoglobin Concent 34 g/dL (31-37) 33 g/dL (31-37) Red Cell Distribution Width 14.2 % (11.5-14.5) 14.3 % (11.5-14.5) Platelet Count 191 x10^3/uL (140-400) 149 x10^3/uL (140-400) Neutrophils (%) (Auto) 73 % (31-73) 70 % (31-73) Lymphocytes (%) (Auto) 16 % (24-48) 19 % (24-48) Monocytes (%) (Auto) 6 % (0-9) 6 % (0-9) Eosinophils (%) (Auto) 4 % (0-3) 3 % (0-3) Basophils (%) (Auto) 1 % (0-3) 1 % (0-3) Neutrophils # (Auto) 6.4 x10^3/uL (1.8-7.7) 4.5 x10^3/uL (1.8-7.7) Lymphocytes # (Auto) 1.4 x10^3/uL (1.0-4.8) 1.2 x10^3/uL (1.0-4.8) Monocytes # (Auto) 0.5 x10^3/uL (0.0-1.1) 0.4 x10^3/uL (0.0-1.1) Eosinophils # (Auto) 0.4 x10^3/uL (0.0-0.7) 0.2 x10^3/uL (0.0-0.7) Basophils # (Auto) 0.1 x10^3/uL (0.0-0.2) 0.1 x10^3/uL (0.0-0.2) Prothrombin Time 11.9 SEC (11.7-14.0) Prothromb Time International Ratio 0.9 (0.8-1.1) Activated Partial Thromboplast Time 29 SEC (24-38) Sodium Level 142 mmol/L (136-145) 143 mmol/L (136-145) Potassium Level 3.7 mmol/L (3.5-5.1) 3.2 mmol/L (3.5-5.1) Chloride Level 104 mmol/L (98-107) 105 mmol/L (98-107) Carbon Dioxide Level 32 mmol/L (21-32) 32 mmol/L (21-32) Anion Gap 6 (6-14) 6 (6-14) Blood Urea Nitrogen 12 mg/dL (8-26) 17 mg/dL (8-26) Creatinine 0.8 mg/dL (0.7-1.3) 1.0 mg/dL (0.7-1.3) Estimated GFR (Cockcroft-Gault) 99.6 77.0 Glucose Level 170 mg/dL (70-99) 112 mg/dL (70-99) Lactic Acid Level 1.3 mmol/L (0.4-2.0) Calcium Level 8.9 mg/dL (8.5-10.1) 8.6 mg/dL (8.5-10.1) Magnesium Level 2.4 mg/dL (1.8-2.4) Creatine Kinase 64 U/L (39-308) Creatine Kinase MB (Mass) 1.4 ng/mL (0.0-3.6) Creatine Kinase MB Relative Index % (0-4) Troponin I Quantitative < 0.017 ng/mL (0.000-0.055) ZY-Qie-T-Type Natriuretic Peptide 1813 pg/mL (0-124) O2 Saturation 96 % (92-99) Arterial Blood pH 7.31 (7.35-7.45) Arterial Blood pCO2 at Patient Temp 61 mmHg (35-46) Arterial Blood pO2 at Patient Temp 85 mmHg (75-108) Arterial Blood HCO3 30 mmol/L (21-28) Arterial Blood Base Excess 2 mmol/L (-3-3) FiO2 60 Influenza Type A Antigen Negative (NEGATIVE) Influenza Type B Antigen Negative (NEGATIVE) BUN/Creatinine Ratio 17 (6-20) Total Bilirubin 0.6 mg/dL (0.2-1.0) Aspartate Amino Transf (AST/SGOT) 16 U/L (15-37) Alanine Aminotransferase (ALT/SGPT) 21 U/L (16-63) Alkaline Phosphatase 77 U/L (46-116) Total Protein 6.0 g/dL (6.4-8.2) Albumin 2.7 g/dL (3.4-5.0) Albumin/Globulin Ratio 0.8 (1.0-1.7) Laboratory Tests Test 09/25/19 08:43 09/25/19 08:50 09/25/19 09:05 09/26/19 04:00 White Blood Count 8.8 x10^3/uL (4.0-11.0) 6.4 x10^3/uL (4.0-11.0) Red Blood Count 4.94 x10^6/uL (4.30-5.70) 4.18 x10^6/uL (4.30-5.70) Hemoglobin 15.1 g/dL (13.0-17.5) 12.6 g/dL (13.0-17.5) Hematocrit 44.8 % (39.0-53.0) 38.3 % (39.0-53.0) Mean Corpuscular Volume 91 fL (79-100) 92 fL (79-100) Mean Corpuscular Hemoglobin 31 pg (25-35) 30 pg (25-35) Mean Corpuscular Hemoglobin Concent 34 g/dL (31-37) 33 g/dL (31-37) Red Cell Distribution Width 14.2 % (11.5-14.5) 14.3 % (11.5-14.5) Platelet Count 191 x10^3/uL (140-400) 149 x10^3/uL (140-400) Neutrophils (%) (Auto) 73 % (31-73) 70 % (31-73) Lymphocytes (%) (Auto) 16 % (24-48) 19 % (24-48) Monocytes (%) (Auto) 6 % (0-9) 6 % (0-9) Eosinophils (%) (Auto) 4 % (0-3) 3 % (0-3) Basophils (%) (Auto) 1 % (0-3) 1 % (0-3) Neutrophils # (Auto) 6.4 x10^3/uL (1.8-7.7) 4.5 x10^3/uL (1.8-7.7) Lymphocytes # (Auto) 1.4 x10^3/uL (1.0-4.8) 1.2 x10^3/uL (1.0-4.8) Monocytes # (Auto) 0.5 x10^3/uL (0.0-1.1) 0.4 x10^3/uL (0.0-1.1) Eosinophils # (Auto) 0.4 x10^3/uL (0.0-0.7) 0.2 x10^3/uL (0.0-0.7) Basophils # (Auto) 0.1 x10^3/uL (0.0-0.2) 0.1 x10^3/uL (0.0-0.2) Prothrombin Time 11.9 SEC (11.7-14.0) Prothromb Time International Ratio 0.9 (0.8-1.1) Activated Partial Thromboplast Time 29 SEC (24-38) Sodium Level 142 mmol/L (136-145) 143 mmol/L (136-145) Potassium Level 3.7 mmol/L (3.5-5.1) 3.2 mmol/L (3.5-5.1) Chloride Level 104 mmol/L (98-107) 105 mmol/L (98-107) Carbon Dioxide Level 32 mmol/L (21-32) 32 mmol/L (21-32) Anion Gap 6 (6-14) 6 (6-14) Blood Urea Nitrogen 12 mg/dL (8-26) 17 mg/dL (8-26) Creatinine 0.8 mg/dL (0.7-1.3) 1.0 mg/dL (0.7-1.3) Estimated GFR (Cockcroft-Gault) 99.6 77.0 Glucose Level 170 mg/dL (70-99) 112 mg/dL (70-99) Lactic Acid Level 1.3 mmol/L (0.4-2.0) Calcium Level 8.9 mg/dL (8.5-10.1) 8.6 mg/dL (8.5-10.1) Magnesium Level 2.4 mg/dL (1.8-2.4) Creatine Kinase 64 U/L (39-308) Creatine Kinase MB (Mass) 1.4 ng/mL (0.0-3.6) Creatine Kinase MB Relative Index % (0-4) Troponin I Quantitative < 0.017 ng/mL (0.000-0.055) TP-Xoy-U-Type Natriuretic Peptide 1813 pg/mL (0-124) O2 Saturation 96 % (92-99) Arterial Blood pH 7.31 (7.35-7.45) Arterial Blood pCO2 at Patient Temp 61 mmHg (35-46) Arterial Blood pO2 at Patient Temp 85 mmHg (75-108) Arterial Blood HCO3 30 mmol/L (21-28) Arterial Blood Base Excess 2 mmol/L (-3-3) FiO2 60 Influenza Type A Antigen Negative (NEGATIVE) Influenza Type B Antigen Negative (NEGATIVE) BUN/Creatinine Ratio 17 (6-20) Total Bilirubin 0.6 mg/dL (0.2-1.0) Aspartate Amino Transf (AST/SGOT) 16 U/L (15-37) Alanine Aminotransferase (ALT/SGPT) 21 U/L (16-63) Alkaline Phosphatase 77 U/L (46-116) Total Protein 6.0 g/dL (6.4-8.2) Albumin 2.7 g/dL (3.4-5.0) Albumin/Globulin Ratio 0.8 (1.0-1.7) Medications Current Medications Hydralazine HCl (Apresoline Inj) 10 mg 1X ONCE IVP ; Start 09/25/19 at 09:00; Stop 09/25/19 at 09:05; Status DC Sodium Chloride 500 ml @ 500 mls/hr 1X ONCE IV Last administered on 09/25/19at 09:59; Start 09/25/19 at 09:00; Stop 09/25/19 at 09:59; Status DC Hydralazine HCl (Apresoline Inj) 10 mg 1X ONCE IVP Last administered on 09/25/19at 10:00; Start 09/25/19 at 09:30; Stop 09/25/19 at 09:31; Status DC Sodium Chloride (Normal Saline Flush) 3 ml QSHIFT PRN IV AFTER MEDS AND BLOOD DRAWS; Start 09/25/19 at 10:45 Ondansetron HCl (Zofran) 4 mg PRN Q4HRS PRN IV NAUSEA/VOMITING; Start 09/25/19 at 10:45 Acetaminophen (Tylenol) 650 mg PRN Q4HRS PRN PO TEMP OVER 100.4F OR MILD PAIN Last administered on 09/25/19at 21:16; Start 09/25/19 at 10:45 Al Hydroxide/Mg Hydroxide (Mylanta Plus Xs) 30 ml PRN DAILY PRN PO HEARTBURN / GAS; Start 09/25/19 at 10:45 Clonidine HCl (Catapres) 0.1 mg PRN Q6HRS PRN PO SBP>160 OR DBP>90 Last administered on 09/25/19at 15:01; Start 09/25/19 at 10:45 Docusate Sodium (Colace) 100 mg PRN BID PRN PO CONSTIPATION; Start 09/25/19 at 10:45 Albuterol/ Ipratropium (Duoneb) 3 ml Q4H NEB Last administered on 09/26/19at 06:45; Start 09/25/19 at 10:45 Guaifenesin (Robitussin) 200 mg PRN Q4HRS PRN PO COUGH; Start 09/25/19 at 10:45 Enoxaparin Sodium (Lovenox 40mg Syringe) 40 mg Q24H SQ Last administered on 09/25/19at 11:00; Start 09/25/19 at 11:00 Piperacillin Sod/ Tazobactam Sod 3.375 gm/Sodium Chloride 50 ml @ 100 mls/hr Q6HRS IV Last administered on 09/26/19at 06:00; Start 09/25/19 at 18:00 Albuterol Sulfate (Ventolin Neb Soln) 2.5 mg PRN Q4HRS PRN NEB SHORTNESS OF BREATH; Start 09/25/19 at 11:15 Furosemide (Lasix) 20 mg DAILY PO Last administered on 09/25/19at 12:33; Start 09/25/19 at 12:00 Lactobacillus Rhamnosus (Culturelle) 1 cap BID PO Last administered on at 21:16; Start 09/25/19 at 21:00 Losartan Potassium (Cozaar) 200 mg DAILY PO Last administered on 09/25/19at 12:33; Start 09/25/19 at 12:00; Stop 09/25/19 at 14:32; Status DC Piperacillin Sod/ Tazobactam Sod 3.375 gm/Sodium Chloride 50 ml @ 100 mls/hr 1X ONCE IV Last administered on 09/25/19at 12:33; Start 09/25/19 at 11:30; Stop 09/25/19 at 11:59; Status DC Amlodipine Besylate (Norvasc) 10 mg DAILY PO ; Start 09/26/19 at 09:00 Aspirin (Isabela Aspirin) 325 mg DAILY PO ; Start 09/26/19 at 09:00 Terazosin HCl (Hytrin) 5 mg QHS PO Last administered on 09/25/19at 21:16; Start 09/25/19 at 21:00 Losartan Potassium (Cozaar) 50 mg BID PO ; Start 09/26/19 at 09:00 Metoprolol Tartrate (Lopressor) 200 mg BID PO ; Start 09/25/19 at 21:00; Stop 09/25/19 at 19:02; Status DC Pharmacy Consult (C.diff Med Screen By Rx) 1 each 1X ONCE [facility] ; Start 09/25/19 at 16:00; Stop 09/25/19 at 16:17; Status DC Metoprolol Tartrate (Lopressor) 100 mg BID PO Last administered on 09/25/19at 21:17; Start 09/25/19 at 21:00 Active Scripts Active Furosemide 20 Mg Tablet 1 Tab PO DAILY 14 Days Proair Hfa (Albuterol Sulfate) 8.5 Gm Hfa.aer.ad 2.5 Mg NEB PRN Q4HRS PRN 14 Days Reported Losartan Potassium 100 Mg Tablet 50 Mg PO BID Terazosin Hcl 5 Mg Capsule 1 Cap PO QHS Metoprolol Tartrate 100 Mg Tablet 2 Tab PO BID Aspirin 325 Mg Tablet 1 Tab PO DAILY Amlodipine Besylate 10 Mg Tablet 10 Mg PO DAILY Vitals/I & O Vital Sign - Last 24 Hours 09/25/19 09/25/19 09/25/19 09/25/19 08:38 09:10 09:16 09:20 Temp 97.3 97.3 Pulse 56 80 94 Resp 25 B/P (MAP) 267/137 (180) 179/99 (125) 163/96 (118) Pulse Ox 82 91 89 91 O2 Delivery BiPAP/CPAP BiPAP/CPAP Ventilator BiPAP/CPAP 09/25/19 09/25/19 09/25/19 09/25/19 09:30 09:40 09:50 10:00 Pulse 90 80 82 78 Resp 24 24 B/P (MAP) 175/100 (125) 179/99 (125) 191/120 (143) 188/102 Pulse Ox 96 98 98 O2 Delivery BiPAP/CPAP BiPAP/CPAP BiPAP/CPAP 09/25/19 09/25/19 09/25/19 09/25/19 10:00 11:00 11:30 11:40 Pulse 74 76 84 78 Resp 22 14 B/P (MAP) 188/102 (130) 186/104 (131) 195/104 (134) 213/95 (134) Pulse Ox 98 98 99 98 O2 Delivery BiPAP/CPAP Venturi Mask Venturi Mask Nasal Cannula 09/25/19 09/25/19 09/25/19 09/25/19 11:44 11:50 12:33 12:45 Temp 97.8 97.8 Pulse 76 83 63 Resp 20 18 B/P (MAP) 201/97 (131) 199/114 199/110 (139) Pulse Ox 96 99 98 O2 Delivery Venturi Mask Nasal Cannula Nasal Cannula O2 Flow Rate 2.0 09/25/19 09/25/19 09/25/19 09/25/19 13:00 13:00 15:00 15:01 Pulse 94 64 73 Resp 18 18 B/P (MAP) 190/112 (138) 188/99 (128) 188/99 Pulse Ox 98 98 O2 Delivery Nasal Cannula Nasal Cannula Nasal Cannula O2 Flow Rate 2.0 2.0 2.0 09/25/19 09/25/19 09/25/19 09/25/19 15:54 16:00 16:00 17:00 Pulse 57 70 Resp 18 18 B/P (MAP) 188/147 (161) 167/90 (115) Pulse Ox 94 94 95 O2 Delivery Nasal Cannula Nasal Cannula Nasal Cannula Nasal Cannula O2 Flow Rate 2.0 2.0 2.0 2.0 09/25/19 09/25/19 09/25/19 09/25/19 18:10 19:00 20:00 20:00 Temp 98.7 98.7 Pulse 60 62 55 Resp 18 16 18 B/P (MAP) 165/93 (117) 171/92 (118) 169/101 (123) Pulse Ox 94 97 97 O2 Delivery Nasal Cannula Nasal Cannula Nasal Cannula Nasal Cannula O2 Flow Rate 2.0 2.0 2.0 2.0 09/25/19 09/25/19 09/25/19 09/25/19 21:00 21:16 21:17 22:00 Pulse 68 68 68 56 Resp 18 18 B/P (MAP) 186/107 (133) 186/107 186/107 174/89 (117) Pulse Ox 96 97 O2 Delivery Nasal Cannula Nasal Cannula O2 Flow Rate 2.0 2.0 09/25/19 09/25/19 09/26/19 09/26/19 22:05 23:00 00:01 00:01 Pulse 50 48 Resp 18 18 B/P (MAP) 137/77 (97) 146/76 (99) Pulse Ox 97 96 96 O2 Delivery Nasal Cannula Nasal Cannula Nasal Cannula Nasal Cannula O2 Flow Rate 3.5 2.0 2.0 2.0 09/26/19 09/26/19 09/26/19 09/26/19 01:00 02:00 03:00 04:00 Temp 97.8 97.8 Pulse 50 44 46 44 Resp 18 18 18 18 B/P (MAP) 143/76 (98) 161/86 (111) 133/71 (91) 125/64 (84) Pulse Ox 97 95 97 96 O2 Delivery Nasal Cannula Nasal Cannula Nasal Cannula Nasal Cannula O2 Flow Rate 2.0 2.0 2.0 2.0 09/26/19 09/26/19 09/26/19 09/26/19 04:00 05:00 06:00 07:00 Pulse 52 45 50 Resp 18 18 18 B/P (MAP) 135/98 (110) 169/97 (121) 158/88 (111) Pulse Ox 95 96 95 O2 Delivery Nasal Cannula Nasal Cannula Nasal Cannula Nasal Cannula O2 Flow Rate 2.0 2.0 2.0 2.0 09/26/19 07:45 Pulse Ox 95 O2 Delivery Nasal Cannula O2 Flow Rate 2.0 Intake and Output 09/25/19 09/25/19 09/26/19 15:00 23:00 07:00 Intake Total 180 ml 903 ml 758 ml Output Total 800 ml 600 ml 200 ml Balance -620 ml 303 ml [address] chest - There is some respiratory motion artifact. The absence of IV contrast limits evaluation of soft tissue pathology. CARDIOVASCULAR: Multivessel coronary calcifications. Normal heart size. Mild ascending thoracic aortic ectasia up to 4.5 cm transverse diameter with no abnormal density suspicious for intramural hematoma. MEDIASTINUM & NITESH: No mediastinal adenopathy with multiple prominent lymph nodes present, including right lower paratracheal lymph nodes that measure 1.3 cm in short axis diameter. No definite hilar adenopathy. There are calcified right hilar lymph nodes however noted. LUNGS: Mild paraseptal pattern emphysema and bibasilar ground glass opacities favored to reflect changes. No focal consolidation. Left upper lobe 5 mm pulmonary nodule (image 17 of axial series 2). PLEURAL SPACE: No pleural effusions or pneumothorax OSSEOUS & SOFT TISSUE: Unremarkable ABDOMEN: Included upper abdomen shows an oval 1.7 cm hypodense lesion in hepatic segment 4 that is incompletely characterized without IV contrast. Statistically, this likely represents a cyst. IMPRESSION: 1. Evidence of prior granulomatous disease and early emphysematous change with no focal parenchymal lung consolidation suspicious for pneumonia. There are groundglass opacities in the bilateral posterior costophrenic angles with trace effusions that are favored to reflect atelectasis. Correlate clinically for any associated infectious inflammatory conditions. 2. Left upper lobe 5 mm pulmonary nodule. Per Fleischner 2017 criteria for incidental pulmonary nodules, no routine follow-up is required in patients considered at low risk for lung cancer. In high-risk patients, optional CT at 12 months may be considered. JOHNATHON KEITA MD Sep 26, 2019 08:35
--- NOTE | 2019-09-26 08:36 | CONS ---
DATE OF CONSULTATION: 09/26/2019 I was asked to see this 59-year-old gentleman for acute respiratory failure. HISTORY OF PRESENT ILLNESS: He has history of [id number] smoking, quit smoking about 2 days ago. He was brought to the Emergency Room via [facility] with complaint of acute-onset shortness of breath and chest pain. He has history of coronary artery disease, status post stent. His blood pressure on arrival was 267/137. Currently, he is in the ICU. He is off oxygen. His shortness of breath has improved tremendously. He denies chest pain. His blood pressure is 140/90. He denies cough or fever. He denies traveling, exposure to people who traveled to [place] or anybody with coronavirus. PAST MEDICAL HISTORY: COPD, hypertension, coronary artery disease, CVA, back surgery, cardiac stent. SOCIAL HISTORY: History of [id number] smoking, quit smoking 2 days ago. FAMILY HISTORY: Hypertension. ALLERGIES: CYCLOBENZAPRINE, LISINOPRIL. MEDICATIONS: Currently, he is on losartan, aspirin, Norvasc, metoprolol, Hytrin, Zosyn, Lasix, Lovenox, and DuoNeb. REVIEW OF SYSTEMS: As mentioned above. He does snore and has excessive daytime sleepiness. Other systems are otherwise negative. PHYSICAL EXAMINATION: GENERAL: This is an overweight gentleman. VITAL SIGNS: His O2 saturation is 92%, respiratory rate 18, heart rate 45, blood pressure 140/90, and temperature 97.8. HEENT: Normocephalic, atraumatic. Pupils are equal, round, an reactive to light. There is shallow oropharynx. Nose is clear. NECK: There is no lymphadenopathy or thyromegaly. CARDIOVASCULAR: Regular rate and rhythm. PMI is nondisplaced. CHEST: Inspection is normal. LUNGS: There are a few bibasilar crackles, dullness at the bases. ABDOMEN: Soft. Bowel sounds are good. There is no mass. EXTREMITIES: There is no edema. LYMPHATICS: There is no lymphadenopathy. NEUROLOGIC: Alert and oriented. SKIN: Chronic changes. LABORATORY AND IMAGING STUDIES: I reviewed the following lab data: CT of the chest showed bibasilar infiltrate/ground glass opacities, atelectasis versus infiltrate, left upper lobe 5-mm nodule. WBC 6.4, hemoglobin 12.6, and platelets 149. ABG; pH 7.31, pCO2 of 61, 60% FiO2 yesterday. Sodium 143, potassium 3.2, chloride 105, CO2 of 32, glucose 112, BUN 17, creatinine 1. BNP 1813. Troponin less than 0.01. Influenza A and B negative. IMPRESSION: 1. Acute respiratory failure secondary to acute diastolic congestive heart failure secondary to hypertensive urgency. I suspect his CT changes are due to atelectasis than infectious process. 2. Abnormal CT of the chest. 3. Chronic obstructive pulmonary disease. 4. Hypertensive urgency. 5. Acute diastolic congestive heart failure. 6. Chronic obstructive pulmonary disease. 7. Snoring and excessive daytime sleepiness. I highly suspect he has obstructive sleep apnea-hypopnea syndrome. 8. Hypertension, poorly controlled, suspect secondary to undiagnosed untreated obstructive sleep apnea-hypopnea syndrome. 9. History of cerebrovascular accident. PLAN AND RECOMMENDATIONS: 1. Titrate FiO2 to keep O2 saturation 92%. He is currently off oxygen. 2. He would require better control of his hypertension. Defer to primary doctor. 3. Cardiology has seen the patient. They have recommended outpatient stress test. 4. May change Zosyn to Augmentin for a total of 7 days. 5. He is checked for Covid-19. Follow up the results. 6. I do recommend a sleep study as an outpatient. 7. He has a left upper lobe nodule. I do recommend a CT of the chest in 1 year. 8. Continue not smoking. The findings and recommendations were discussed with the patient and RN. Thank you very much for allowing me to participate in care of this very nice gentleman. He is currently in ICU and droplet isolation. EMILIANA CAMPBELL M.D. : Willem JOB#: [id number] / [id number] KATHERINE
[2019-09-26] MEDS ORDERED: amLODIPine BESYLATE 10 MG TABLET PO SCH (09:00)
[2019-09-26] MEDS ORDERED: LOSARTAN POTASSIUM 50 MG TABLET. PO SCH (09:00)
[2019-09-26] MEDS ORDERED: ASPIRIN 325 MG TABLET PO SCH (09:00)
[2019-09-26] MEDS: POTASSIUM CHLORIDE 10MEQ 100 ML IV SCH ×2 (09:36→09:48)
--- NOTE | 2019-09-26 10:24 | PDOC ---
Provider Note Provider Note Patient is still quite bradycardic. Will decrease Metoprolol to 50mg bid. Supportive care. Ok to DC and he has out f/u with us. DIDIER VELASQUEZ MD Sep 26, 2019 10:24
[2019-09-26] MEDS ORDERED: METOPROLOL TART IMMED RELEASE 50 MG TABLET. PO SCH (11:00)
[2019-09-26] MEDS ORDERED: DOXY100C2 PO (16:44)
[2019-09-26] MEDS ORDERED: METO100T7 PO (16:44)
--- NOTE | 2019-09-26 16:47 | PDOC3 ---
Discharge Summary Visit Information Date of Admission: Sep 25, 2019 Date of Discharge: Sep 26, 2019 Admitting Diagnosis: Acute respiratory failure with hypoxia Final Diagnosis Problems Medical Problems: (1) Acute respiratory failure with hypoxia Status: Acute (2) Chest pain Status: Acute (3) Congestive heart failure Status: Acute Brief Hospital Course Allergies Allergies Coded Allergies Type Severity Reaction Last Updated Verified lisinopril Allergy Severe anaphylaxis shock 07/10/17 Yes cyclobenzaprine Allergy Intermediate stomach problems 07/10/17 Yes Vital Signs Vital Signs Date Time Temp Pulse Resp B/P (MAP) Pulse Ox O2 Delivery O2 Flow Rate FiO2 09/26/19 16:06 Nasal Cannula 2.0 09/26/19 15:40 95 09/26/19 15:15 54 18 152/93 (112) 09/26/19 12:00 98.5 98.5 Lab Results Laboratory Tests Test 09/25/19 08:43 09/25/19 08:50 09/25/19 09:05 09/26/19 04:00 White Blood Count 8.8 x10^3/uL (4.0-11.0) 6.4 x10^3/uL (4.0-11.0) Red Blood Count 4.94 x10^6/uL (4.30-5.70) 4.18 x10^6/uL (4.30-5.70) Hemoglobin 15.1 g/dL (13.0-17.5) 12.6 g/dL (13.0-17.5) Hematocrit 44.8 % (39.0-53.0) 38.3 % (39.0-53.0) Mean Corpuscular Volume 91 fL (79-100) 92 fL (79-100) Mean Corpuscular Hemoglobin 31 pg (25-35) 30 pg (25-35) Mean Corpuscular Hemoglobin Concent 34 g/dL (31-37) 33 g/dL (31-37) Red Cell Distribution Width 14.2 % (11.5-14.5) 14.3 % (11.5-14.5) Platelet Count 191 x10^3/uL (140-400) 149 x10^3/uL (140-400) Neutrophils (%) (Auto) 73 % (31-73) 70 % (31-73) Lymphocytes (%) (Auto) 16 % (24-48) 19 % (24-48) Monocytes (%) (Auto) 6 % (0-9) 6 % (0-9) Eosinophils (%) (Auto) 4 % (0-3) 3 % (0-3) Basophils (%) (Auto) 1 % (0-3) 1 % (0-3) Neutrophils # (Auto) 6.4 x10^3/uL (1.8-7.7) 4.5 x10^3/uL (1.8-7.7) Lymphocytes # (Auto) 1.4 x10^3/uL (1.0-4.8) 1.2 x10^3/uL (1.0-4.8) Monocytes # (Auto) 0.5 x10^3/uL (0.0-1.1) 0.4 x10^3/uL (0.0-1.1) Eosinophils # (Auto) 0.4 x10^3/uL (0.0-0.7) 0.2 x10^3/uL (0.0-0.7) Basophils # (Auto) 0.1 x10^3/uL (0.0-0.2) 0.1 x10^3/uL (0.0-0.2) Prothrombin Time 11.9 SEC (11.7-14.0) Prothromb Time International Ratio 0.9 (0.8-1.1) Activated Partial Thromboplast Time 29 SEC (24-38) Sodium Level 142 mmol/L (136-145) 143 mmol/L (136-145) Potassium Level 3.7 mmol/L (3.5-5.1) 3.2 mmol/L (3.5-5.1) Chloride Level 104 mmol/L (98-107) 105 mmol/L (98-107) Carbon Dioxide Level 32 mmol/L (21-32) 32 mmol/L (21-32) Anion Gap 6 (6-14) 6 (6-14) Blood Urea Nitrogen 12 mg/dL (8-26) 17 mg/dL (8-26) Creatinine 0.8 mg/dL (0.7-1.3) 1.0 mg/dL (0.7-1.3) Estimated GFR (Cockcroft-Gault) 99.6 77.0 Glucose Level 170 mg/dL (70-99) 112 mg/dL (70-99) Lactic Acid Level 1.3 mmol/L (0.4-2.0) Calcium Level 8.9 mg/dL (8.5-10.1) 8.6 mg/dL (8.5-10.1) Magnesium Level 2.4 mg/dL (1.8-2.4) Creatine Kinase 64 U/L (39-308) Creatine Kinase MB (Mass) 1.4 ng/mL (0.0-3.6) Creatine Kinase MB Relative Index % (0-4) Troponin I Quantitative < 0.017 ng/mL (0.000-0.055) [id number]-[id number]-Type Natriuretic Peptide 1813 pg/mL (0-124) O2 Saturation 96 % (92-99) Arterial Blood pH 7.31 (7.35-7.45) Arterial Blood pCO2 at Patient Temp 61 mmHg (35-46) Arterial Blood pO2 at Patient Temp 85 mmHg (75-108) Arterial Blood HCO3 30 mmol/L (21-28) Arterial Blood Base Excess 2 mmol/L (-3-3) FiO2 60 Influenza Type A Antigen Negative (NEGATIVE) Influenza Type B Antigen Negative (NEGATIVE) BUN/Creatinine Ratio 17 (6-20) Total Bilirubin 0.6 mg/dL (0.2-1.0) Aspartate Amino Transf (AST/SGOT) 16 U/L (15-37) Alanine Aminotransferase (ALT/SGPT) 21 U/L (16-63) Alkaline Phosphatase 77 U/L (46-116) Total Protein 6.0 g/dL (6.4-8.2) Albumin 2.7 g/dL (3.4-5.0) Albumin/Globulin Ratio 0.8 (1.0-1.7) Laboratory Tests Test 09/26/19 04:00 White Blood Count 6.4 x10^3/uL (4.0-11.0) Red Blood Count 4.18 x10^6/uL (4.30-5.70) Hemoglobin 12.6 g/dL (13.0-17.5) Hematocrit 38.3 % (39.0-53.0) Mean Corpuscular Volume 92 fL (79-100) Mean Corpuscular Hemoglobin 30 pg (25-35) Mean Corpuscular Hemoglobin Concent 33 g/dL (31-37) Red Cell Distribution Width 14.3 % (11.5-14.5) Platelet Count 149 x10^3/uL (140-400) Neutrophils (%) (Auto) 70 % (31-73) Lymphocytes (%) (Auto) 19 % (24-48) Monocytes (%) (Auto) 6 % (0-9) Eosinophils (%) (Auto) 3 % (0-3) Basophils (%) (Auto) 1 % (0-3) Neutrophils # (Auto) 4.5 x10^3/uL (1.8-7.7) Lymphocytes # (Auto) 1.2 x10^3/uL (1.0-4.8) Monocytes # (Auto) 0.4 x10^3/uL (0.0-1.1) Eosinophils # (Auto) 0.2 x10^3/uL (0.0-0.7) Basophils # (Auto) 0.1 x10^3/uL (0.0-0.2) Sodium Level 143 mmol/L (136-145) Potassium Level 3.2 mmol/L (3.5-5.1) Chloride Level 105 mmol/L (98-107) Carbon Dioxide Level 32 mmol/L (21-32) Anion Gap 6 (6-14) Blood Urea Nitrogen 17 mg/dL (8-26) Creatinine 1.0 mg/dL (0.7-1.3) Estimated GFR (Cockcroft-Gault) 77.0 BUN/Creatinine Ratio 17 (6-20) Glucose Level 112 mg/dL (70-99) Calcium Level 8.6 mg/dL (8.5-10.1) Total Bilirubin 0.6 mg/dL (0.2-1.0) Aspartate Amino Transf (AST/SGOT) 16 U/L (15-37) Alanine Aminotransferase (ALT/SGPT) 21 U/L (16-63) Alkaline Phosphatase 77 U/L (46-116) Total Protein 6.0 g/dL (6.4-8.2) Albumin 2.7 g/dL (3.4-5.0) Albumin/Globulin Ratio 0.8 (1.0-1.7) Brief Hospital Course Mr Aaron is a 59yo M w/ PMHx CAD s/p PCI, HTN, HLD, BPH, chronic dCHF (EF 55%), smoker who p/w shortness of breath initially. He was found on ABG to have pH 7.31/61/85 and was initially placed on BIPAP, admitted to [facility]. Flu A and B is negative. Troponin is negative. BNP is mildly elevated at 1813. CT chest negative for pneumonia, emphysematous changes noted and ground-glass opacities posteriorly consistent with atelectasis. He has no sick contacts or recent travel. Based on CT findings he was placed in ICU due to testing being sent for SARS-CoV-2 (COVID-19) for quarantine isolation. He was admitted the first week of September for the same issues, discharged home with meds and follow up. He still continues to smoke. Cutting his dose to 50mg of metoprolol per cardiology recommendations. Will be on home quarantine for 14 days or until contacted by health department for negative test results Problem list: Acute hypoxic and hypercapnic respiratory failure - on BIPAP initially, likely multifactorial 2/2 COPD and mild dCHF exacerbation Acute exacerbation of COPD - still smoking, likely etiology. Mild bilateral lower lobe septal thickening and ground-glass opacities,may represent early pulmonary edema, was diuresed Small pulmonary nodules. Recommend one-year follow-up - seen by Dr. Fontaine and recommended this just 3 weeks prior COPD - Paraseptal emphysema. Morbid obesity Tobacco abuse disorder Acute diastolic congestive heart failure exacerbation - diurese. Cardiology consulted, reduced BB due to bradycardia Chest pain - costochondritis. Neg trop and EKG, no OH. Severe hypertensive emergency, remains uncontrolled Elevated d- dimer Greater than 30 minutes spent on d/c Discharge Information Condition at Discharge: Improved Follow Up: Weeks (1) Disposition/Orders: D/C to Home Scheduled Amlodipine Besylate (Amlodipine Besylate) 10 Mg Tablet, 10 MG PO DAILY for HTN, (Reported) Entered as Reported by: CHIDI GROSS on 07/10/17 1237 Last Action: Continued on 09/25/19 1430 by VALENTIN VELASQUEZ Aspirin (Aspirin) 325 Mg Tablet, 1 TAB PO DAILY for BLOOD THINNER, #30 Ref 5 (Reported) Entered as Reported by: CHIDI GROSS on 07/11/17 1611 Last Action: Continued on 09/25/19 1430 by VALENTIN VELASQUEZ Doxycycline Hyclate (Doxycycline Hyclate) 100 Mg Capsule, 1 CAP PO BID for COPD for 7 Days, #14 Prescribed by: JOHNATHON KEITA MD on 09/26/19 1644 Furosemide (Furosemide) 20 Mg Tablet, 1 TAB PO DAILY for CHF for 14 Days, #14 Ref 5 Prescribed by: RUSSEL ALVARADO MD on 09/06/19 1131 Last Action: Reviewed on 09/25/19 1244 by VALENTIN VELASQUEZ Losartan Potassium (Losartan Potassium) 100 Mg Tablet, 50 MG PO BID for HYPERTENSION, (Reported) Entered as Reported by: VALENTIN VELASQUEZ on 09/25/19 1244 Last Taken: Unknown Dose on Unknown Date & Time Last Action: Converted on 09/25/19 1430 by VALENTIN VELASQUEZ Metoprolol Tartrate (Metoprolol Tartrate) 100 Mg Tablet, 0.5 TAB PO BID for HTN for 30 Days, #30 Ref 5 Prescribed by: JOHNATHON KEITA MD on 09/26/19 1644 Terazosin Hcl (Terazosin Hcl) 5 Mg Capsule, 1 CAP PO QHS for BPH/HTN, #30 Ref 5 (Reported) Entered as Reported by: GIOVANNI GOODE on 09/05/19 0212 Last Action: Continued on 09/25/19 1430 by VALENTIN VELASQUEZ Scheduled PRN Albuterol Sulfate (Proair Hfa) 8.5 Gm Hfa.aer.ad, 2.5 MG NEB PRN Q4HRS PRN for SHORTNESS OF BREATH for 14 Days, #1 Prescribed by: RUSSEL ALVARADO MD on 09/06/19 1125 Last Action: Reviewed on 09/25/194 by JOHNATHON TREVIÑO MD Sep 26, 2019 16:47
--- NOTE | 2019-09-26 18:14 | NUR ---
Discharge Note: [facility] ICU Discharge instructions and discharge home medications reviewed with Patient and a copy given. All questions have been answered and understanding verbalized. Pt educated on importance of self isolation for covid 19, both by this RN and Dr. Mancera, pt states understanding. Discharge instructions and handouts were given and reviewed. Script for Metoprolol and Doxycycline given to pt. Discontinued lines. Patient discharged to home. Assited pt to car via wheelchair with staff, pt wore mask while out of room to vehicle. Pt denies further needs at discharge.
--- NOTE | 2019-10-08 11:07 | NUR ---
IP: Pt informed of COVID test results as negative. Pt verbalized understanding.
== END 2019-09-26 18:18 | disposition home health service (06) ==
LOC: ER 08:38 → 1 WEST ICU 09:52
PROVIDERS: ADMIT Family Medicine; ATTEND Family Medicine
DX: J96.01 Acute respiratory failure with hypoxia (principal); I25.2 Old myocardial infarction; I48.91 Unspecified atrial fibrillation; E66.01 Morbid (severe) obesity due to excess calories; E78.5 Hyperlipidemia, unspecified; F17.210 Nicotine dependence, cigarettes, uncomplicated; I11.0 Hypertensive heart disease with heart failure; Z03.818 Encounter for observation for suspected exposure to other biological agents ruled out; I25.10 Atherosclerotic heart disease of native coronary artery without angina pectoris; M19.90 Unspecified osteoarthritis, unspecified site; I50.33 Acute on chronic diastolic (congestive) heart failure; G81.91 Hemiplegia, unspecified affecting right dominant side; R59.0 Localized enlarged lymph nodes; J43.8 Other emphysema; I16.0 Hypertensive urgency; R79.89 Other specified abnormal findings of blood chemistry; Z82.3 Family history of stroke; Z83.3 Family history of diabetes mellitus; Z82.5 Family history of asthma and other chronic lower respiratory diseases; Z86.73 Personal history of transient ischemic attack (TIA), and cerebral infarction without residual deficits; Z95.5 Presence of coronary angioplasty implant and graft; Z98.890 Other specified postprocedural states; Z82.49 Family history of ischemic heart disease and other diseases of the circulatory system
CPT/HCPCS: 36415; 36600; 71045; 71250; 80048; 80053; 82553; 82805; 83605; 83735; 83880; 84484; 85025; 85610; 85730; 87040; 87077; 87205; 87635; 87804; 93005; 94640; 94660; 96365; 96366; 96372; 96375; 99285; G0378; J0360; J1650; J2543; J3480; J7040; G0379